=== PATIENT | female | born 1990 | race African-American/Black ===

== ENCOUNTER 2017-08-11 18:04 | Emergency (ER) | payer MEDICAID, OTHER ==
[~2017-08-11] VITALS: Ht 167.6 cm; Wt 63.5 kg
[~2017-08-11 18:04] MED LIST: AMOXICILLIN500 MG ORAL; IBUPROFEN600 MG ORAL; LIDOCAINE20 MG/1 M1 MM; TRAMADOL HCL50 MG ORAL
[2017-08-11 18:10] VITALS: BP 115/77
--- NOTE | 2017-08-11 18:56 | Emergency Room Report ---
History of Present Illness General Chief Complaint: Flu Like Symptoms Source: Patient (Eduar Sanchez) Present Illness HPI 27 yo female presents to ER for flulike symptoms and generalized abdominal pain. Patient complains of watery diarrhea for the past week. Patient also complains of vomiting with food intake x1 day. States she feels nauseous and has been unable to eat food during this time. Patient also complains of subjective fever, congestion. Patient denies breathing difficulty, no SOB. Patient states she took antibiotics (unknown what antibiotic) for her symptoms. Patient LMP was June [id number]. Patient states she has not received her menses this month. Patient complains of blood spotting on her tampon. Patient denies profuse vaginal discharge or bleeding. Patient denies pain with urination or difficulty urinating. Patient states she is sexually active with her boyfriend, does not use contraceptive methods. Patient reports she was once before and elected to have an . Patient denies blood in stool or vomit. Patient denies chest pain, SOB, rash. (Eduar Sanchez) Allergies: Coded Allergies: ACETAMINOPHEN (Verified Allergy, Unknown, 01/12/16) HYDROCODONE (Verified Allergy, Unknown, 01/12/16) Patient History Past Medical History: see triage record Social History: Denies: smoking, alcohol use, drug use Last Menstrual Period: 06/26/18 : 1 Para: 0 - elevtive Reviewed Nursing Documentation: PMH: Agreed, PSxH: Agreed (Eduar Sanchez) Nursing Documentation-PMH Past Medical History: No Stated History (Eduar Sanchez) Review of Systems All Other Systems: negative except mentioned in HPI (Eduar Sanchez) Physical Exam Vital Signs Date Time Temp Pulse Resp B/P (MAP) Pulse Ox O2 Delivery O2 Flow Rate FiO2 08/11/17 18:07 97.7 63 18 110/76 98 Room Air Sp02 EP Interpretation: reviewed, normal General Appearance: alert, GCS 15, non-toxic, mild distress Head: normocephalic, atraumatic Eyes: bilateral eye normal inspection, bilateral eye PERRL ENT: hearing grossly normal, normal pharynx, no angioedema, normal voice, TMs + canals normal, uvula midline, moist mucus membranes Respiratory: chest non-tender, lungs clear, normal breath sounds, speaking full sentences Cardiovascular #1: regular rate, rhythm, no edema Gastrointestinal: soft, no mass, non-distended, no guarding, no rebound, tenderness - diffuse abdominal tenderness, unable to localize pain Genitourinary: normal inspection, no CVA tenderness - right, CVA tenderness (L) Musculoskeletal: back normal, digits/nails normal, gait/station normal, normal range of motion, non-tender Neurologic: alert, oriented x3, responsive, motor strength/tone normal, sensory intact, speech normal Psychiatric: mood/affect normal Skin: normal color, no rash, warm/dry, well hydrated Lymphatic: no adenopathy (Eduar Sanchez P.ADeanna) Medical Decision Making PA Attestation Dr. Salazar is my supervising Physician whom patient management has been discussed with. (Eduar Sanchez P.ADeanna) Diagnostic Impression: Primary Impression: Positive test Additional Impressions: Diarrhea Qualified Codes: R19.7 - Diarrhea, unspecified UTI (urinary tract infection) Qualified Codes: N30.00 - Acute cystitis without hematuria ER Course Pt presents to ED c/o generalized abdominal pain, vomiting, and diarrhea. DDX considered but are not limited to gastroenteritis, viral infection, UTI, . VITAL SIGNS are WNL, patient is afebrile. ORDERS: UA with reflux, shows positive leukocyte esterase and bacteria. Urine , positive. Lab results discussed with patient. Patient states she understands results. Following results of test, Type ABO/Rh were ordered. Patient is A positive. Patient informed of results. ED INTERVENTIONS: Zofran IV NS ER COURSE Patient is resting comfortably in bed, hemodynamically stable in no acute distress. Patient states she feels better and is ready to go home. Patient will be discharged to home following completion of IV NS. Results and treatment discussed with Dr. Salazar who will discharge patient following IV NS. -Rx provided for Macrobid for UTI. -Rx provided for Compazine for nausea. Explained to patient that vomiting symptoms may be due to morning sickness related to . Will provide with patient care instructions and any necessary prescriptions. Patient to take medication as instructed. Care plan and follow-up instructions provided. Patient questions asked and answered. Patient instructed to follow-up with OBGYN in 3 - 5 days for further treatment. ER precautions given. Patient instructed to return to ER immediately for any new or worsening of symptoms. Labs Test 08/11/17 19:06 Urine Color Yellow Urine Appearance Slightly cloudy Urine pH 6.5 (4.5-8.0) Urine Specific [place] 1.020 (1.005-1.035) Urine Protein 2+ (NEGATIVE) Urine Glucose (UA) Negative (NEGATIVE) Urine Ketones 2+ (NEGATIVE) Urine Occult Blood Negative (NEGATIVE) Urine Nitrite Negative (NEGATIVE) Urine Bilirubin 1+ (NEGATIVE) Urine Ictotest Negative Urine Urobilinogen 4 MG/DL (0.0-1.0) Urine Leukocyte Esterase 1+ (NEGATIVE) Urine RBC 0-2 /HPF (0 - 2) Urine WBC 5-10 /HPF (0 - 2) Urine Squamous Epithelial Cells Moderate /LPF (NONE/OCC) Urine Bacteria Moderate /HPF (NONE) Urine HCG, Qualitative Positive (Eduar Sanchez) ER Course Patient examined by me. Agree with treatment plan. She is improved after IV hydration and medication. She's tolerating by mouth. The patient is stable for outpatient observation and treatment. (Yosi Salazar M.D.) Last Vital Signs Date Time Temp Pulse Resp B/P (MAP) Pulse Ox O2 Delivery O2 Flow Rate FiO2 08/11/17 18:07 97.7 63 18 110/76 98 Room Air Status: improved (Eduar Sanchez) Disposition: HOME, SELF-CARE Condition: Stable Scripts Prochlorperazine (COMPAZINE*) 10 Mg Tablet 10 MG ORAL Q6H Y for Nausea & Vomiting for 7 Days, #24 TAB Prov: Eduar Sanchez 08/11/17 Nitrofurantoin Monohyd/M-Cryst* (MACROBID 100 MG*) 100 Mg Capsule 100 MG ORAL EVERY 12 HOURS for 7 Days, #14 CAP Prov: Eduar Sanchez 08/11/17 Referrals: NOT CHOSEN IPA/MD,REFERRING (PCP) Patient Instructions: Abdominal Pain During , [id number], Diarrhea, Adult, [id number], Urinary Tract Infection, [id number] Additional Instructions: Followup with OBGYN and Primary Care Provider in 3 -5 days. Take medications as directed. Patient questions asked and answered. ER precautions given, patient instructed to return to ER immediately for any new or worsening of symptoms. Eduar Sanchez Aug 11, 2017 18:56 Yosi Salazar M.D. Aug 16, 2017 10:21
[2017-08-11 19:40] LABS: APPEARANCE,URINE SLIGHTLY CLOUDY; BILIRUBIN, URINE 1+ (NEGATIVE); GLUCOSE, URINE (UA) NEGATIVE (NEGATIVE); KETONES,URINE 2+ (NEGATIVE); LEUKOCYTE ESTERASE ,URINE 1+ (NEGATIVE); NITRITE,URINE NEGATIVE (NEGATIVE); PH,URINE 6.5 (4.5-8.0); PROTEIN,URINE 2+ (NEGATIVE); UROBILINOGEN,URINE 4 MG/DL (0.0-1.0)
[2017-08-11 19:45] LABS: COLOR,URINE YELLOW
[2017-08-11] MEDS ORDERED: METRONIDAZOLE250 MG ORAL (21:53)
[2017-08-11] MEDS ORDERED: NITROFURANTOIN100 M2 ORAL (21:53)
[2017-08-11] MEDS ORDERED: D5W 250 ML IVPB ONE (22:00)
[2017-08-11] MEDS ORDERED: CHLORPROMAZINE10 MG PO (22:09)
[2017-08-11] MEDS ORDERED: COMPAZINE10 MG ORAL (22:24)
[2017-08-11 23:51] VITALS: BP 115/77
== END 2017-08-11 23:51 | disposition home or self-care (01) ==
LOC: EMR 18:42
DX: N39.0 Urinary tract infection, site not specified (principal); R19.7 Diarrhea, unspecified; Z32.01 Encounter for pregnancy test, result positive; Z88.6 Allergy status to analgesic agent
CPT/HCPCS: 36415; 81003; 81025; 86900; 86901; 87086; 96361; 96365; 99284